=== PATIENT | male | born 2000 | race Hispanic/Latino ===

== ENCOUNTER 2025-01-06 11:26 | Emergency (ER) | payer SELFPAY ==
[2025-01-06 11:28] VITALS: BP 128/78
[2025-01-06] MEDS: TYLENOL 1000 MG PO (12:01)
--- NOTE | 2025-01-06 12:24 | ED.GENMED ---
History of Present Illness
General
Chief Complaint: Skin Surface Trauma
Time Seen by Provider: 01/06/25 11:42
History of Present Illness
History of Present Illness:
24-year-old male without significant past medical history presenting to the emergency department for left hand laceration. Patient was working with sheet-metal, was wearing protective gloves, however the metal went through his hand and suffered a
laceration to the left hypothenar eminence. Denies issues with range of motion. Tetanus up-to-date. Denies numbness or tingling. Denies additional acute injuries or medical complaints
Phy Exam
Physical Exam
Physical Exam:
General: Well-appearing, no clinical signs of dehydration, nontoxic and in no acute distress
HEENT: protecting airway
Neck: appears supple
CV: Normal heart rate
Resp: No accessory muscle use, no increased work of breathing
Abd: No distention
Extremities: No deformities, no swelling. Large linear laceration to the left hypothenar eminence, subcutaneous without any tendon or muscle involvement. Range of motion intact
Neuro: alert, no focal neurologic deficit
: deferred
Rectal: deferred
Psych: Normal affect
Skin: Intact
Course
Orders/Labs/Results
Orders:
Orders
01/06/25 11:57
Acetaminophen [Tylenol] 1,000 mg PO NOW STA
Vital Signs
Initial and Last Documented VS:
Initial Vital Signs
Temp Pulse Resp BP Pulse Ox
97.9 F 76 20 128/78 100
01/06/25 11:28 01/06/25 11:28 01/06/25 11:28 01/06/25 11:28 01/06/25 11:28
Last Documented Vital Signs
Temp Pulse Resp BP Pulse Ox
97.9 F 76 20 128/78 100
01/06/25 11:28 01/06/25 11:28 01/06/25 11:28 01/06/25 11:28 01/06/25 11:28
Procedures
Laceration Closure
Left Palmar Hand:
Status of Wound: clean
Size of Wound in cm: 7
Preparation: cleaned with saline
Anesthesia: 1% Lidocaine
Wound exploration: no tendon involvement
Type of Closure: single layer closure
Skin Closure Material: 4-0 prolene
Number of sutures: 8
MDM/Problems Addressed
MDM/Problems Addressed:
24-year-old male presenting for left hand laceration after cutting himself with sheet-metal. Vital signs normal. Tetanus up-to-date. Patient with obvious laceration to his hand, however range of motion grossly intact. No neurovascular
compromise. No infectious findings. Laceration was repaired without incident. Please see procedure note. Otherwise stable for discharge with outpatient follow-up. Return precautions discussed and patient verbalized understanding
*Pulse Oximetry
SaO2: 100
Oxygen Mode of Delivery: Room air
Patient hypoxic: no
*Critical Care Note
Total Time (30-74mins, 75-104mins- exclusive of procedures): Not Applicable
ED Attending Note
-
Portions of this chart may have been created with voice recognition software.� Occasional wrong word or��sound alike� substitutions may have occurred due to the inherent limitations of voice recognition software.
Discharge Plan
Departure
Patient Disposition: Home (Routine Discharge)
Date of Disposition: 01/06/25
Time of Disposition: 12:30
Patient with high blood pressure during this ER visit?: No
Condition: Good
Discharge Problem:
Laceration of left hand
Instructions: Laceration Repair With Stitches (DC)
Prescriptions:
New
ibuprofen 600 mg tablet
600 mg PO Q8H PRN (Reason: Pain) Qty: 15 0RF
Stand Alone Forms: Return to Work
Interventions
Interventions:
*Risk Screen - Suicide Last Done: 01/06/25 11:28
*General Assessment Last Done: 01/06/25 11:46
*Neglect/Abuse Screening Last Done: 01/06/25 11:31
*ED- Fall Risk Assessment Last Done: 01/06/25 11:46
*ED COVID-19 Vaccine History Last Done: 01/06/25 11:46
*ED Influenza Vaccine History Last Done: 01/06/25 11:46
ED-Skin Assessment Last Done: 01/06/25 12:05
Discharge Date and Time
Print Language: OCCITAN
== END 2025-01-06 12:48 | disposition home or self-care (01) ==
LOC: EMR 11:26
PROVIDERS: EMERGENCY PHYSICIAN Student in an Organized Health Care Education/Training Program
DX: S61.412A Laceration without foreign body of left hand, initial encounter (principal); W26.8XXA Contact with other sharp object(s), not elsewhere classified, initial encounter
CPT/HCPCS: 12002; 99282